=== PATIENT | female | born 1980 | race American Indian/Alaskan Native ===

== ENCOUNTER 2021-06-26 21:05 | Emergency (ER) | payer OTHER ==
[2021-06-26 22:18] VITALS: BP 145/96
[2021-06-26] MEDS ORDERED: ACETAMINOPHEN 500 MG TAB PO ONE (22:31)
[2021-06-26] MEDS ORDERED: IBUPROFEN 600 MG TAB PO ONE (22:31)
--- NOTE | 2021-06-26 23:08 | XRay Report ---
Lumbar spine 3 views INDICATION: Low back pain FINDINGS: Alignment appears normal. No compression fractures seen. Sacrum and sacroiliac joints appea r normal. Facets are well aligned. IMPRESSION: No acute findings. Signer Name: Yassine Luo MD Signed: 06/26/2021 11:04 PM Workstation Name: [id number]
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
== END 2021-06-27 01:38 | disposition home or self-care (01) ==
LOC: ED 21:05
DX: M62.838 Other muscle spasm (principal); M62.830 Muscle spasm of back; F32.9 Major depressive disorder, single episode, unspecified; F41.9 Anxiety disorder, unspecified; F17.200 Nicotine dependence, unspecified, uncomplicated; Z79.899 Other long term (current) drug therapy; V49.49XA Driver injured in collision with other motor vehicles in traffic accident, initial encounter; Y92.410 Unspecified street and highway as the place of occurrence of the external cause; Y93.89 Activity, other specified; Y99.8 Other external cause status
CPT/HCPCS: 70450; 72100; 72125